=== PATIENT | male | born 1930 | race Caucasian/White ===

== ENCOUNTER 2017-07-09 01:02 | Inpatient (IN) | payer MEDICARE, OTHER ==
[~2017-07-09] VITALS: Ht 177.8 cm; Wt 67.8 kg
[2017-07-09 01:39] LABS: BASOPHILS 0.1 % (0-2); EOSINOPHILS 0.4 % (0-7); HEMATOCRIT 28.7 % (42.0-54.0); HEMOGLOBIN 9.6 g/dL (13.5-17.5); LYMPHOCYTES 7.3 % (15-50); MCH 32.9 pg (26.0-34.0); MCHC 33.4 g/dL (31.0-37.0); MCV 98.3 fL (80.0-100.0); MEAN PLATELET VOLUME 9.9 fL (7.4-10.4); MONOCYTES 22.8 % (2-11); NEUTROPHILS 67.4 % (40-80); PLATELET COUNT 216 10x3/uL (130-400); RBC 2.92 10x6/uL (4.20-6.10); RDW 15.6 % (11.5-14.5); WBC 18.3 10x3/uL (4.8-10.8)
[2017-07-09 01:49] LABS: ALBUMIN 2.5 g/dL (3.4-5.0); ALKALINE PHOSPHATASE 70 U/L (46-116); ALT (SGPT) 36 U/L (10-68); CALC OSMOLALITY 280 mosm/kg (275-300); CALCIUM 8.8 mg/dL (8.5-10.1); CHLORIDE - SERUM 105 mmol/L (98-107); CREATININE - SERUM 1.4 mg/dL (0.6-1.3); GLUCOSE 109 mg/dL (74-106); POTASSIUM - SERUM 4.6 mmol/L (3.5-5.1); PROTEIN - SERUM 7.3 g/dL (6.4-8.2); SODIUM 136 mmol/L (136-145); UREA NITROGEN 34 mg/dL (7-18); eGFR NON AFRICAN AMERICAN 51 mL/min (90-120)
[2017-07-09 01:57] LABS: PRO BNP 7138 pg/mL (0-450); TROPONIN-I < 0.017 ng/mL (0.000-0.060)
[2017-07-09 02:42] LABS: APPEARANCE CLEAR (CLEAR); BILIRUBIN NEGATIVE (NEGATIVE); COLOR YELLOW (YELLOW); GLUCOSE NEGATIVE (NEGATIVE); KETONE NEGATIVE (NEGATIVE); NITRITE NEGATIVE (NEGATIVE); PROTEIN NEGATIVE (NEGATIVE); UROBILINOGEN NORMAL (NORMAL)
--- NOTE | 2017-07-09 03:20 | NUR ---
PT ARRIVED VIA W/C WITH DAUGHTER. NO DISTRESS NOTED.
[2017-07-09 03:42] VITALS: BP 137/61; BMI 22.2
--- NOTE | 2017-07-09 04:22 | NUR ---
ADMISSION ASSESSMENT,HISTORY COMPLETED. INFO FROM DAUGHTER. IV TO [facility] AT THIS TIME. HEMATOMA NOTED TO LFS WITH STERI STRIP. STERI STRIP AND SKIN TEAR NOTED TO R HAND. BILAT WRISTS WITH SKIN TEARS. PT ALERT, ORIENTED TO PERSON AND PLACE. BED ALARM ON ABD SR UP X2. WILL CONTINHUE TO MONITOR.
[2017-07-09] MEDS ORDERED: FERROUS SULFAT325 MG PO (05:01)
[2017-07-09] MEDS ORDERED: ATIVAN0.5 MG PO ×2 (05:02)
[2017-07-09] MEDS ORDERED: ISOSORBIDE MONO10 MG PO (05:03)
[2017-07-09] MEDS ORDERED: MEGACE40 MG PO (05:03)
[2017-07-09] MEDS ORDERED: LOVASTATIN20 MG PO (05:04)
[2017-07-09] MEDS ORDERED: SYNTHROID75 MCG PO (05:04)
[2017-07-09] MEDS ORDERED: PROTONIX40 MG PO (05:05)
[2017-07-09] MEDS ORDERED: VITAMIN B-121000 MCG PO (05:05)
[2017-07-09] MEDS ORDERED: FLOMAX0.4 MG PO (05:05)
[2017-07-09] MEDS ORDERED: MULTIPLE VITAMI1 TA1 PO (05:06)
[2017-07-09] MEDS ORDERED: BAYER CHEWABLE81 MG PO (05:06)
[2017-07-09] MEDS ORDERED: CALCIUM 600 +1 EAC3 PO (05:06)
[2017-07-09] MEDS ORDERED: MYLANTA / MAALO30 ML PO (05:07)
[2017-07-09] MEDS ORDERED: ACETAMINOPHEN500 M1 PO (05:08)
[2017-07-09] MEDS ORDERED: ZOFRAN4 MG PO (05:08)
[2017-07-09 05:20] VITALS: BP 112/42
--- NOTE | 2017-07-09 05:49 | NUR ---
PT RESTING WITH EYES CLOSED. RESP EVEN AND REGULAR. SR UP X2, CALL LIGHT WITHIN REACH AND BED ALARM ON.
--- NOTE | 2017-07-09 07:34 | NUR ---
BED ALARM IN USE. PATIENT HAS A HX OF FALLING AT [facility]. ON HEART MONITOR SHWOING SR, HR 101. LEFT AC SEEN WITH SALINE LOCK. BILATERAL WRISTS ARE SEEN WRAPPED IN ATTILA. LEFT FOREHEAD HAS SOME STERI-STRIPS. WILL MONITOR.
[2017-07-09 08:23] VITALS: BP 111/52
[2017-07-09 11:55] VITALS: BP 105/49
--- NOTE | 2017-07-09 12:57 | NUR ---
PATIENT LAYING DOWN PAST LUNCH, BED ALARM IN USE.
--- NOTE | 2017-07-09 13:56 | NUR ---
WHILE REMOVAL GUAZQ TO LEFT FA, SALINE COMES OUT. IT WAS BARELY IN. RE-SITED WT 22 G X 1 STICK TO RIGHT AC. WRAPPED IN GUAZE. ATTILA REMOVED FROM RIGHT WRIST, SMALL SKIN TEAR SEEN. NO BLLEDING. RE-DRESSED WT CLEAN ATTILA AND TAPED.
--- NOTE | 2017-07-09 14:24 | NUR ---
RETURNS VIA WHEELCHAIR TO ROOM FROM DIALYSIS. STILL NPO FOR NM GASTRIC SCAN.
--- NOTE | 2017-07-09 15:40 | NUR ---
TO CT VIA BED.
[2017-07-09 15:53] VITALS: BP 108/45
--- NOTE | 2017-07-09 15:55 | NUR ---
RETURNS FROM CT.
--- NOTE | 2017-07-09 16:54 | NUR ---
FEMALE MEMBER AT BEDSIDE. BED ALARM IS STILL ON. WILL CONTINUE TO MONITOR.
[2017-07-09 19:00] VITALS: BP 107/50
--- NOTE | 2017-07-09 19:47 | NUR ---
PATIENT IS ASLEEP, FAMILY AT BEDSIDE. CALL LIGHT IN REACH.
[2017-07-10 04:00] VITALS: BP 110/53
[2017-07-10 04:52] LABS: HEMOGLOBIN 9.8 g/dL (13.5-17.5); MCHC 32.7 g/dL (31.0-37.0); MEAN PLATELET VOLUME 10.4 fL (7.4-10.4); PLATELET COUNT 258 10x3/uL (130-400); RBC 3.06 10x6/uL (4.20-6.10); RDW 15.8 % (11.5-14.5)
[2017-07-10 05:03] LABS: WBC 11.6 10x3/uL (4.8-10.8)
[2017-07-10 05:08] LABS: ANION GAP 15.2 mmol/L (8-16); CREATININE - SERUM 1.4 mg/dL (0.6-1.3); POTASSIUM - SERUM 4.2 mmol/L (3.5-5.1)
[2017-07-10 05:27] LABS: EOSINOPHILS 2 % (0-7); LYMPHOCYTES 27 % (15-50); MONOCYTES 3 % (2-11); NEUTROPHILS 63 % (40-80)
[2017-07-10 05:37] LABS: PLATELET ESTIMATE NORMAL
--- NOTE | 2017-07-10 07:11 | NUR ---
ROUNDING DONE WITH PATIENT APPEARING TO BE ALSEEP, LIGHTLY SNORING. BED ALARM IN USE. ON HEART MONITOR SHOWING SR, HR 63. RIGHT FA SEEN WTIH SALINE LOCK AND ATTILA. ATTILA ALSO SEEN TO RIGHT WRIST AREA. STERI STRIPS TO LEFT FOREHEAN AND RIGHT HAND. WILL MONITOR.
[2017-07-10 08:35] VITALS: BP 101/42
[2017-07-10 10:11] VITALS: Ht 177.8 cm; Wt 67.8 kg
[2017-07-10 12:02] VITALS: BP 100/58
--- NOTE | 2017-07-10 15:08 | NUR ---
DR CLEMENT ON FLOOR. B/P IS 100/58. TOLD TO HOLD THE LASIX AND ATIVAN.
--- NOTE | 2017-07-10 16:42 | EC ---
PATIENT:ROSIE WADSWORTH DATE OF SERVICE: 07/09/17 SEX: M MEDICAL RECORD: [id number] DATE OF : [birth year] LOCATION:D.M2 D.210 AGE OF PATIENT: 86 ADMISSION DATE: 07/09/17 REFERRING PHYSICIAN: INTERPRETING PHYSICIAN: LIZET YU MD ECHOCARDIOGRAM REPORT ECHO CHARGES 4 ECHO COMPLETE CLINICAL DIAGNOSIS: CHF ECHOCARDIOGRAPHIC MEASUREMENTS (adult normal given) AC root (d.<3.7cm) 3.3 cm LV Septum d (<1.2 cm> 1.6 cm Valve Excursion 2.1 cm LV Septum (systole) 2.1 cm Left Atria (s.<4.0cm> 3.6 cm LVPW d(<1.2cm) 1.3 cm RV (d.<2.3cm) 2.4 cm LVPW (sytole) 1.8 cm LV diastole(<5.6CM) 5.4 cm MV E-F(>70mm/sec) cm LV systole 3.4 cm LVOT Diameter 1.8 cm MV exc.(>10mm) cm Est.ejection fraction (50-75%) % Pericardial Effusion N DOPPLER: LVIT cm/sec A 73.0 cm/sec E 86.0 cm/sec LA cm/sec RVSP 40.1 mmHg LVOT 117 cm/sec AOP1/2T m/s Asc. Ao 249 cm/sec RVOT 102 cm/sec RA cm/sec PA 166 cm/sec AV Gradient Peak 25.0 mmHg AV Mean 13.2 mmHg AV Area 1.2 cm MV Gradient Peak 5.8 mmHg MV Mean 1.9 mmHg MV Area cm COMMENTS: Beeswax Bleacher: Antonio ROTHOE Tank Truck Milk Receiver: 4 Dr. John TAPE# PACS DATE OF SERVICE: 07/09/2017 Echocardiogram FINDINGS: 1. Left ventricular chamber size is upper limits of normal, left ventricular systolic function is mildly reduced, overall ejection fraction 40%. 2. Left atrium, right atrium, and right ventricular chamber sizes are within normal limits. Left atrium measures 3.6 cm. 3. 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 Valve area calculates 1.2 cm squared with a gradient of 25 mm across the valve. The remaining valvular structures have normal structure and motion. 4. Doppler interrogation elsewise reveals mild mitral regurgitation, [id number] tricuspid regurgitation, no other valvular insufficiency or stenosis. Pulmonary systolic pressure is estimated at 40 mmHg. 5. No evidence of pericardial effusion or left ventricular thrombus. TRANSINT:[id number] Voice Confirmation ID: [id number] DOCUMENT ID: [id number] LIZET YU MD at 1642 CC: [id number] DICTATION DATE: 07/10/17 103 UNIVERSITY RELATIONS DIRECTOR: 07/10/17 1133 ADM IN [facility] [address] [place] [address]
--- NOTE | 2017-07-10 17:24 | NUR ---
SITTING UP IN THE BED EATING SUPPER. BED ALARM IS ON. WILL CONTNUE TO MONITOR.
--- NOTE | 2017-07-10 18:13 | NUR ---
PATIENT UP IN ROOM WITHOUT USING CALL LIGHT AND BED ALARM GOING OFF. ASSISTED TO RESTROOM. BACK TO BED, BED ALARM BACK ON.
--- NOTE | 2017-07-10 19:20 | NUR ---
PT IN BED RESTING QUIELTY. DENIES ANY PAIN OR NEEDS AT THIS TIME. WILL CTM.
[2017-07-10 21:28] VITALS: BP 113/56
--- NOTE | 2017-07-11 | NUR ---
PT CONFUSED ABOUT TIME OF DAY. KEEPS TRYING TO GET OUT OF BED WITHOUT ASSISTANCE. STATES HE BELIEVES IT IS MORNING. REORIENTED PT. BED ALARM ON. BREATHING EVEN AND UNLABORED. BED IN LOW POSITION, CALL LIGHT WITHIN REACH. WILL CTM.
[2017-07-11 01:06] VITALS: BP 115/53
--- NOTE | 2017-07-11 02:50 | NUR ---
IV INFILTRATED. RESITED TO R FOREARM. 22G. 2 ATTEMPTS.
[2017-07-11 04:30] LABS: BASOPHILS 0.1 % (0-2); EOSINOPHILS 4.4 % (0-7); HEMATOCRIT 30.1 % (42.0-54.0); HEMOGLOBIN 9.9 g/dL (13.5-17.5); IMMATURE GRANULOCYTES 5.3 % (0-5); LYMPHOCYTES 12.5 % (15-50); MCH 32.2 pg (26.0-34.0); MCHC 32.9 g/dL (31.0-37.0); MEAN PLATELET VOLUME 9.8 fL (7.4-10.4); MONOCYTES 18.8 % (2-11); NEUTROPHILS 58.9 % (40-80); PLATELET COUNT 266 10x3/uL (130-400); RBC 3.07 10x6/uL (4.20-6.10); RDW 15.6 % (11.5-14.5); WBC 10.6 10x3/uL (4.8-10.8)
[2017-07-11 04:38] VITALS: BP 112/37
[2017-07-11 04:42] LABS: ANION GAP 13.9 mmol/L (8-16); CALCIUM 8.7 mg/dL (8.5-10.1); CARBON DIOXIDE 22.3 mmol/L (21.0-32.0); CREATININE - SERUM 1.4 mg/dL (0.6-1.3); POTASSIUM - SERUM 4.2 mmol/L (3.5-5.1)
--- NOTE | 2017-07-11 07:30 | NUR ---
AM ROUNDS COMPLETED. INTRODUCED MYSELF TO PT PRIMARY RN FOR TODAYS SHIFT. PT RESTING QUIETLY IN BED. SHIFT ASSESSMENT COMPLETED. PT DENIES ANY CURRENT PAIN OR NEEDS AT THIS TIME. CL IN REACH, BED IN LOWEST, SIDE RAILS X2 AND BUILT IN BED ALARM ON WILL CPOC.
[2017-07-11 08:34] VITALS: BP 110/57
--- NOTE | 2017-07-11 10:38 | NUR ---
PT UP OOB AMBULATING WITH THERAPY USING A WALKER. PT AMBULATING WELL AND DENIES ANY CURRENT PAIN OR NEEDS.
[2017-07-11 12:44] VITALS: BP 129/69
--- NOTE | 2017-07-11 12:49 | NUR ---
Nutrition follow-up: Diet: Regular PO intake ~75% of meals Labs reviewed +BM Wt: 150# - down 5# from admit; however, pt is on diuretics PO intake is good at this time. RDN following.
--- NOTE | 2017-07-11 14:32 | NUR ---
PT OOB AND SET OFF BED ALARM THIS IS THE 5TH TIME TODAY. PT VERY CONFUSED BUT IS PLEASANT HOWEVER PT NEEDS FREQUENT CUING AND STILL DOESNT FOLLOW DIRECTIONS AND IS FREQUENTLY CLIMBING OOB. PTS GAIT IS STEADY BUT HE IS HIGH FALL RISK FOR RECENT FALL AT [facility]. PT DENIES ANY CURRENT NEEDS AT THIS TIME ASSISTED HIM BACK INTO BED. PT RESTING QUIETLY BUILT IN BED ALARM ACTIVE. WILL CPOC.
--- NOTE | 2017-07-11 14:54 | NUR ---
PTS OUTPUT NOT ACCURATE R/T HIS CONFUSION. NOTIFIED PRIMARY AND THEY ARE AWARE WILL CONTINUE TO CUE HIM FOR URINAL OR TOPHAT USE FOR ACCURATE MEASUREMENTS.
[2017-07-11 15:54] VITALS: BP 140/65
--- NOTE | 2017-07-11 16:00 | NUR ---
IVPB ANBX INITIATED INFUSING VIA L.FA PIV SITE WITH DRSG CDI AND SWAB CAPS IN USE. NEW TUBING HUNG AND DATED PER Q72H PROTOCOL, NS HUNG TO RUN FLUSH. PT SITTING UP IN BED RESTING QUIETLY AND STATES HE IS COMFORTABLE. FAMILY VISITING AT BEDSIDE. NO FURTHER NEEDS AT THIS TIME, PT HOPING TO BE DISCHARGED TOMORROW. WILL CPOC.
--- NOTE | 2017-07-11 19:40 | NUR ---
PT IN BED RESTING QUIELTY. DENIES ANY PAIN OR NEEDS AT THIS TIME. BED ALARM ON. BED IN LOW POSITION, CALL LIGHT WITHIN REACH. WILL CTM.
[2017-07-11 21:42] VITALS: BP 110/54
[2017-07-12 05:17] LABS: BASOPHILS 0.3 % (0-2); EOSINOPHILS 5.5 % (0-7); HEMATOCRIT 29.7 % (42.0-54.0); IMMATURE GRANULOCYTES 5.4 % (0-5); LYMPHOCYTES 14.9 % (15-50); MCH 32.5 pg (26.0-34.0); MCHC 33.7 g/dL (31.0-37.0); MCV 96.4 fL (80.0-100.0); MEAN PLATELET VOLUME 10.4 fL (7.4-10.4); MONOCYTES 18.5 % (2-11); NEUTROPHILS 55.4 % (40-80); PLATELET COUNT 261 10x3/uL (130-400); RBC 3.08 10x6/uL (4.20-6.10); RDW 15.5 % (11.5-14.5)
[2017-07-12 05:30] LABS: ANION GAP 17.9 mmol/L (8-16); CALCIUM 8.1 mg/dL (8.5-10.1); CARBON DIOXIDE 19.9 mmol/L (21.0-32.0); CREATININE - SERUM 1.5 mg/dL (0.6-1.3); POTASSIUM - SERUM 3.8 mmol/L (3.5-5.1)
--- NOTE | 2017-07-12 07:45 | NUR ---
INTRODUCED MYSELF TO PT PRIMARY RN FOR TODAYS SHIFT. PT IS ALERT AND ORIENTED THIS MORNING. PT IS HOPING TO BE DISCHARGED TODAY. SHIFT ASSESSMENT COMPLETED AND NO CHANGES NOTED FROM YESTERDAY. PT DENIES ANY CURRENT PAIN OR NEEDS AT THIS TIME. CL IN REACH, BED IN LOWEST, SIDE RAILS X2. WILL CPOC.
[2017-07-12 08:53] VITALS: BP 115/57
--- NOTE | 2017-07-12 10:49 | NUR ---
PTS DAILY WEIGHT NOT RECORDED ORDERED SO CURRENTLY GETTING ONE NOW AND WILL RECORD.
--- NOTE | 2017-07-12 11:53 | NUR ---
Patient Name: ROSIE WADSWORTH Admission Status: ER Accout number: [id number] Admission Date: 07-09-2017 : 1930 Admission Diagnosis: Attending: JOSEE CLEMENT Current LOS: 3 Anticipated DC Date: 07-12-2017 Planned Disposition: [facility] Facility Primary Insurance: MEDICARE A & B PLANNED EXTERNAL PROVIDER: [facility], MEDICARE REHAB BED Discharge Planning Comments: * Is the patient Alert and Oriented? Yes 0 * How many steps to enter\exit or inside your home? NONE 0 * PCP DR. LYNN ORTIZ 0 * Pharmacy [facility] [address] (HOME PHARMACY) 0 * Preadmission Environment [facility] Facility 0 * Facility Name [facility] - REHAB 0 * ADLs Partial Dependent 0 * Partial ADLs (Assistance needed) Ambulation Bathing Medication Management Transfers 0 * Equipment Other 0 * Other Equipment ALL MEDICAL EQUIPMENT PROVIDED BY FACILITY 0 * List name and contact numbers for known caregivers / representatives who currently or will assist patient after discharge: REN ARREAGA, DTR, 0 * Community resources currently utilized None 0 * Please name any agencies selected above. NONE 0 * Additional services required to return to the preadmission environment? No 0 * Can the patient safely return to the preadmission environment? Yes 0 * Has this patient been hospitalized within the prior 30 days at any hospital? Yes 0 CM RECEIVED DISCHARGE ORDER, MET WITH PT AND DAUGHTER IN ROOM, PT HAS BEEN AT [facility] FOR REHAB AND WILL RETURN THERE AT DISCHARGE TODAY. PT'S DAUGHTER REPORTS SHE WILL TRANSPORT PT THERE AT DISCHARGE SHORTLY. IMPORTANT MESSAGE FROM MEDICARE PROVIDED AND EXPLAINED. CM CALLED [facility], , SPOKE TO MARCELA WHO WILL PROVIDE DISCHARGE INFORMATION TO SHAHRZAD WHO WILL CALL CM SHORTLY. CM FAXED DISCHARGE INFORMATION TO [facility], . NURSE REPORT TO BE CALLED TO [facility], . PT'S DAUGHTER TO TRANSPORT BACK TO REHAB TODAY. Bead Machine Operator: Julio C Ford
[2017-07-12 11:57] VITALS: BP 94/40
--- NOTE | 2017-07-12 12:55 | NUR ---
D/C PTS L.FA PIV WITH CATH TIP FULLY INTACT. PT IS EXCITED ABOUT GOING BACK TO HIS RESIDENCE TO VISIT HIS FRIENDS. PTS DAUGHTER IS AT BEDSIDE FOR TRANSPORTATION. DISCHARGE TEACHING PROVIDED AND PAPERS SIGNED. BELONGINGS COLLECTED AND READY TO LEAVE WITH PT. CALLED REPORT TO DOMINGA FROM [facility] AND PT IS LEAVING OUR UNIT NOW.
== END 2017-07-12 13:07 | DRG 293 ==
LOC: D.ER 01:02 → D.M2 02:45
PROVIDERS: Family Medicine; ADMIT Family Medicine
DX: I50.23 Acute on chronic systolic (congestive) heart failure (principal); E03.9 Hypothyroidism, unspecified; I25.10 Atherosclerotic heart disease of native coronary artery without angina pectoris; F03.90 Unspecified dementia, unspecified severity, without behavioral disturbance, psychotic disturbance, mood disturbance, and anxiety; I08.1 Rheumatic disorders of both mitral and tricuspid valves; Z95.1 Presence of aortocoronary bypass graft; Z87.891 Personal history of nicotine dependence

== ENCOUNTER 2018-01-27 14:55 | Inpatient (IN) | payer MEDICARE, OTHER ==
[~2018-01-27] VITALS: Ht 177.8 cm; Wt 68.6 kg
[~2018-01-27 14:55] MED LIST: ACETAMINOPHEN500 M1 PO; ATIVAN0.5 MG PO; BAYER CHEWABLE81 MG PO; CALCIUM 600 +1 EAC3 PO; FERROUS SULFAT325 MG PO; FLOMAX0.4 MG PO; ISOSORBIDE MONO10 MG PO; LOVASTATIN20 MG PO; MEGACE40 MG PO; MULTIPLE VITAMI1 TA1 PO; MYLANTA / MAALO30 ML PO; PROTONIX40 MG PO; SYNTHROID75 MCG PO; VITAMIN B-121000 MCG PO; ZOFRAN4 MG PO
[2018-01-27 15:14] LABS: BASOPHILS 0.2 % (0-2); EOSINOPHILS 0 % (0-7); HEMATOCRIT 36.8 % (42.0-54.0); HEMOGLOBIN 11.6 g/dL (13.5-17.5); IMMATURE GRANULOCYTES 3.4 % (0-5); LYMPHOCYTES 14.7 % (15-50); MCH 34.5 pg (26.0-34.0); MCHC 31.5 g/dL (31.0-37.0); MCV 109.5 fL (80.0-100.0); MEAN PLATELET VOLUME 11.9 fL (7.4-10.4); MONOCYTES 24.8 % (2-11); NEUTROPHILS 56.9 % (40-80); RBC 3.36 10x6/uL (4.20-6.10); RDW 15.9 % (11.5-14.5); WBC 13.7 10x3/uL (4.8-10.8)
[2018-01-27 15:20] LABS: PLATELET COUNT 140 10x3/uL (130-400)
[2018-01-27 15:43] LABS: APTT 35.6 SECONDS (22.8-39.4); INR 1.24 (0.85-1.17); PROTIME 15.2 SECONDS (11.6-15.0)
[2018-01-27 15:51] LABS: ALBUMIN 1.9 g/dL (3.4-5.0); ANION GAP 15.2 mmol/L (8-16); BILIRUBIN - TOTAL 0.29 mg/dL (0.2-1.3); CALCIUM 8.5 mg/dL (8.5-10.1); CARBON DIOXIDE 23.2 mmol/L (21.0-32.0); CREATININE - SERUM 1.3 mg/dL (0.6-1.3); POTASSIUM - SERUM 4.4 mmol/L (3.5-5.1); PROTEIN - SERUM 6.3 g/dL (6.4-8.2)
[2018-01-27 16:06] LABS: CKMB 2.4 U/L (0.0-3.6); CREATINE KINASE 84 UL (21-232)
[2018-01-27 16:14] LABS: TROPONIN-I 0.147 ng/mL (0.000-0.060)
[2018-01-27 19:25] LABS: CREATINE KINASE 72 UL (21-232)
[2018-01-27 19:32] LABS: TROPONIN-I 0.158 ng/mL (0.000-0.060)
[2018-01-27] MEDS ORDERED: DEPAKOTE SPRIN125 MG PO (21:59)
[2018-01-27] MEDS ORDERED: SYNTHROID100 MCG PO (22:02)
[2018-01-27] MEDS ORDERED: MELATONIN 3 MG1 TAB PO (22:04)
[2018-01-27] MEDS ORDERED: MILK OF MAGNESI30 ML PO (22:09)
[2018-01-27] MEDS ORDERED: TYLENOL650 MG RC (22:11)
[2018-01-27 22:20] VITALS: BP 128/82; Ht 177.8 cm; Wt 68.6 kg
[2018-01-27 22:40] VITALS: BP 128/82
[2018-01-28 01:18] LABS: CKMB 4.3 U/L (0.0-3.6); CREATINE KINASE 82 UL (21-232)
[2018-01-28 01:22] LABS: TROPONIN-I 0.507 ng/mL (0.000-0.060)
== END 2018-01-28 02:27 | DRG 64 ==
LOC: D.ER 14:55 → D.EDHOLD 18:17 → D.MS 18:54
PROVIDERS: Family Medicine
DX: I63.9 Cerebral infarction, unspecified (principal); I50.23 Acute on chronic systolic (congestive) heart failure; R53.2 Functional quadriplegia; G93.41 Metabolic encephalopathy; E43 Unspecified severe protein-calorie malnutrition; E87.0 Hyperosmolality and hypernatremia; N39.0 Urinary tract infection, site not specified; M62.81 Muscle weakness (generalized); Z51.5 Encounter for palliative care; E78.5 Hyperlipidemia, unspecified; E03.9 Hypothyroidism, unspecified; I46.9 Cardiac arrest, cause unspecified; F03.90 Unspecified dementia, unspecified severity, without behavioral disturbance, psychotic disturbance, mood disturbance, and anxiety; I25.10 Atherosclerotic heart disease of native coronary artery without angina pectoris; R57.0 Cardiogenic shock; R32 Unspecified urinary incontinence; E86.0 Dehydration